=== PATIENT | female | born 1940 | race Caucasian/White ===

== ENCOUNTER 2017-02-09 08:50 | Day surgery (SDC) | END 2017-02-09 11:35 | disposition home or self-care (01) | DX: K29.70 Gastritis, unspecified, without bleeding (principal); K64.8 Other hemorrhoids; I25.10 Atherosclerotic heart disease of native coronary artery without angina pectoris; Z95.5 Presence of coronary angioplasty implant and graft; J45.909 Unspecified asthma, uncomplicated; E78.5 Hyperlipidemia, unspecified; I10 Essential (primary) hypertension; Z86.73 Personal history of transient ischemic attack (TIA), and cerebral infarction without residual deficits ==